=== PATIENT | male | born 1965 | race Caucasian/White ===

== ENCOUNTER 2017-05-12 09:41 | Outpatient (CLI) ==
--- NOTE | 2017-05-12 10:43 | CT ---
EXAM: CT lumbar spine without contrast HISTORY: Back pain COMPARISON: None TECHNIQUE: CT lumbar spine performed without intravenous contrast. Coronal and sagittal reformatte d images obtained. FINDINGS: For the purposes of this examination, there will be considered five lumbar vertebral bodi es with transitional anatomy of L1 and partial lumbarization of S1. Vertebral bodies normal in heig ht. No fracture. No subluxation. Mild multilevel intervertebral disc space narrowing. Sacroiliac joints intact. Colonic diverticulosis. Aorta normal in caliber. Small hiatal hernia, incompletel y imaged. Visualized liver diffusely decreased in attenuation. No paravertebral soft tissue abnorm ality. T12-L1: No central canal or neural foraminal narrowing. L1-L2: No central canal or neural foraminal narrowing. L2-L3: No central canal or neural foraminal narrowing. L3-L4: No central canal or neural foraminal narrowing. L4-L5: Posterior disc osteophyte complex and facet arthrosis causing mild bilateral neural foramina l narrowing. L5-S1: Posterior disc osteophyte complex and facet arthrosis causing moderate bilateral neural fora yariel narrowing. IMPRESSION: 1. No fracture or subluxation. 2. Chronic discogenic degenerative disease and facet arthrosis. Please see segmental analysis. Ple ase note vertebral body numbering. 3. Incidental findings include hepatic steatosis, colonic diverticulosis, small incompletely imaged hiatal hernia
== END 2017-05-12 09:42 | disposition home or self-care (01) ==
LOC: RAD 09:41
PROVIDERS: ATTEND Internal Medicine
DX: M54.9 Dorsalgia, unspecified (principal)

== ENCOUNTER 2017-05-13 08:25 | Outpatient (CLI) ==
--- NOTE | 2017-05-13 09:07 | US ---
Exam: Diaz-scale and color Doppler ultrasonographic evaluation of the right upper quadrant. Reason for exam: Pain. Comparison: None available. FINDINGS: The liver appears diffusely hyperechoic in echo texture with normal antegrade portal venous flow, an d no obvious intrahepatic ductal dilatation. There is a 0.61 x 0.76 x 0.61 cystic lesion in the lef t hepatic lobe without interval vascularity. The gallbladder wall measures 0.23 cm in thickness without intraluminal sludge, stone or polyp. The common bile duct measures 0.44 cm without intraluminal stone or polyp. The pancreas was not well seen secondary to overlying bowel gas. The right kidney measures 12.29 x 4.59 x 5.19 cm without obvious hydronephrosis or nephrolithiasis. Impression: 1. No ultrasonographic evidence of cholecystitis. 2. There is likely a sub centimeter hepatic cyst. 3. Evaluation was limited by overlying bowel gas and patient's body habitus.
== END 2017-05-13 08:26 | disposition home or self-care (01) ==
LOC: RAD 08:25
PROVIDERS: ATTEND Internal Medicine
DX: R10.9 Unspecified abdominal pain (principal)

== ENCOUNTER 2017-05-15 11:32 | Outpatient (CLI) ==
--- NOTE | 2017-05-15 12:20 | DI ---
Exam: Two x-rays of the chest. Comparison: None available. Reason for exam: Pain. FINDINGS: No pneumothorax, pleural effusion, or focal consolidation. Degenerative changes are seen in the thoracic spine. There is elevation of the right hemidiaphragm. Impression: No acute cardiopulmonary process.
--- NOTE | 2017-05-15 12:21 | DI ---
Exam: Seven x-rays of the cervical spine. Comparison: None available. Reason for exam: Pain. FINDINGS: No acute fracture or listhesis. There is multilevel degenerative disease with interverte bral body disc space height narrowing and osteophyte formation most notably at C5-6 and C6-7. The C 7-T1 interspace is not well evaluated secondary to summation artifact from the patient's shoulders. The dens is intact on the Wu view. The prevertebral soft tissues are within normal limits of s ize. Impression: 1. No acute fracture or listhesis in the visualized portions of the cervical spine. 2. Multilevel degenerative disease with intervertebral body disc space height loss and osteophyte f ormation
== END 2017-05-15 11:33 | disposition home or self-care (01) ==
LOC: RAD 11:32
PROVIDERS: ATTEND Internal Medicine
DX: M54.9 Dorsalgia, unspecified (principal); M54.2 Cervicalgia

== ENCOUNTER 2017-05-19 17:25 | Outpatient (CLI) | END 2017-05-19 17:26 | disposition home or self-care (01) | LOC: CAR 17:25 | PROVIDERS: ATTEND Internal Medicine | DX: I10 Essential (primary) hypertension (principal) | CPT/HCPCS: 93005; 93010 ==

== ENCOUNTER 2017-05-20 19:28 | Outpatient (CLI) ==
[2017-05-20 20:12] LABS: BASOPHILS % (AUTO) 0.5 % (0.0-3.0); EOSINOPHILS # (AUTO) 0.2 K/ul (0.0-0.7); EOSINOPHILS % (AUTO) 2.6 % (0.0-7.0); HEMATOCRIT 38.5 % (42.0-52.0); HEMOGLOBIN 13.3 g/dl (14.0-18.0); IMMATURE GRANULOCYTE % (AUTO) 0.5 % (0.0-5.0); LYMPHOCYTES # (AUTO) 1.5 K/uL (0.60-3.4); LYMPHOCYTES % (AUTO) 20.1 (10.0-50.0); MEAN CORPUSCULAR HEMOGLOBIN 27.7 pg (27.0-31.0); MEAN CORPUSCULAR HGB CONC 34.5 (31.8-35.4); MEAN CORPUSCULAR VOLUME 80.2 fl (80.0-94.0); MONOCYTES # (AUTO) 0.8 K/uL (0.4-2.0); MONOCYTES % (AUTO) 10.4 (0-10); NEUTROPHILS % (AUTO) 65.9; PLATELET COUNT 220 10^3/uL (140-440); WHITE BLOOD COUNT 7.61 K/ul (4.2-10.2)
[2017-05-20 20:13] LABS: ADD URINE MICROSCOPIC YES; BILIRUBIN,URINE Negative (NEGATIVE); KETONES,URINE Trace (NEGATIVE); LEUKOCYTE ESTERASE ,URINE Negative (NEGATIVE); NITRITE,URINE Negative (NEGATIVE); PH,URINE 5.5 (5-9); PROTEIN,URINE Negative (NEGATIVE); URINE, BLOOD Negative (NEGATIVE)
[2017-05-20 20:42] LABS: ERYTHROCYTE SEDIMENTATION RATE 30 mm/hr (0-15); ESR INTERNAL QC INTERNAL QC VALID
[2017-05-20 20:51] LABS: ALBUMIN 3.2 g/dL (3.4-5.0); ALBUMIN/GLOBULIN RATIO 0.8; ANION GAP 10.8; BILIRUBIN,TOTAL 0.36 mg/dL (0.00-1.20); BUN/CREATININE RATIO 19.31; CALCIUM 9.2 mg/dL (8.2-10.2); CHOL/HDL RATIO 3.5 (4.5-6.4); CREATININE 0.88 mg/dL (0.60-1.10); POTASSIUM 3.8 mmol/L (3.5-5.1); TOTAL PROTEIN 7.2 g/dL (6.4-8.2)
== END 2017-05-20 19:29 | disposition home or self-care (01) ==
LOC: LAB 19:28
PROVIDERS: ATTEND Internal Medicine
DX: I10 Essential (primary) hypertension (principal); E66.9 Obesity, unspecified; Z82.49 Family history of ischemic heart disease and other diseases of the circulatory system
CPT/HCPCS: 36415; 80053; 80061; 81001; 83036; 84443; 85025; 85651; 86430

== ENCOUNTER 2017-05-25 08:54 | Outpatient (CLI) ==
--- NOTE | 2017-05-25 13:06 | NM ---
EXAM: Hepatobiliary scan HISTORY: Right upper quadrant pain. COMPARISON: None of this type. PROCEDURE: The patient was injected with 5 mCi of 99mTc mebrofenin intravenously. Images of the abdo men were obtained immediately and at 1 min intervals for . The patient was then given 8 ounces of MARIELA OST after which images of the gallbladder were obtained to assess gallbladder contraction. FINDINGS: Sequential images demonstrate normal uptake of tracer into the liver. Activity is seen in the intrahepatic biliary ducts at about 10 minutes. The activity appears in the gallbladder at about 45 minutes. Subsequent images demonstrate increasing activity in the gallbladder. Activity first a ppears in the small bowel at 20 minutes. The gallbladder ejection fraction is 24% . IMPRESSION: 1.Normal hepatobiliary scan. 2.The gallbladder ejection fraction is 24% (low).
== END 2017-05-25 08:55 | disposition home or self-care (01) ==
LOC: RAD 08:54
PROVIDERS: ATTEND Internal Medicine
DX: R10.11 Right upper quadrant pain (principal)

== ENCOUNTER 2017-05-27 09:26 | Outpatient (CLI) ==
--- NOTE | 2017-05-27 21:13 | MRI ---
EXAM: Lumbar spine MRI without contrast. HISTORY: Low back pain. History of herniated disc. COMPARISON: Lumbar spine CT scan 05/12/2017 and chest radiograph 05/15/2017. TECHNIQUE: Multiplanar, multisequence MR images were acquired of the lumbar spine without contrast. FINDINGS: Transitional anatomy is present at the thoracolumbar junction. For the purposes of this d ictation, the last normal rib-bearing vertebra is numbered T12 and at L1, there are considered unusua l articulating transverse processes or hypoplastic ribs bilaterally. There is minor mid lumbar levosc oliosis. The lumbar vertebra are generally normal in height and intrinsic bone marrow signal. There is minor lumbar ventral spondylosis. At L5-S1, there is mild to moderate disc space narrowing, disc desiccation, mild endplate irregularity and reactive fatty marrow changes along the lateral endplate s bilaterally. There is mild endplate irregularity in the lower thoracic and upper lumbar spine from T10-11 to L1-2. Conus medullaris ends at L1-2 and has normal configuration and signal intensity. C anal diameter is developmentally narrow due to congenitally short pedicles. The partially visualized kidneys are unremarkable. There are no paravertebral masses. L1-2: The intervertebral disc is normal. L2-3: There is a minimal physiologic disc bulge that is asymmetric to the left which minimally narro ws the inferior left neural foramen. There is no central canal stenosis. L3-4: The intervertebral disc is normal. L4-5: The intervertebral disc is normal. There is mild bilateral facet arthropathy and ligamentum f lavum hypertrophy without foraminal stenosis or central canal stenosis. L5-S1: There is a minor diffuse disc bulge that is greatest posteriorly with small posterior endplat e osteophytes and a superimposed broad-based central disc extrusion that is asymmetric to the left wi th inferior migration. This minimally effaces the left anterior subarachnoid space. Mild bilateral facet and ligamentum flavum hypertrophy is present. There is mild to moderate right and moderate lef t neural foraminal stenosis. There is no central canal stenosis. IMPRESSION: 1. Transitional lumbar spinal anatomy. L1 has unusual articulating transverse processes or hypoplast ic ribs bilaterally. 2. Small broad-based central disc extrusion L5-S1 that is asymmetric to the left with inferior migra tion. 3. Mild to moderate right and moderate left L5-S1 neural foraminal stenosis.
== END 2017-05-27 09:27 | disposition home or self-care (01) ==
LOC: RAD 09:26
PROVIDERS: ATTEND Internal Medicine
DX: M54.5 Low back pain (principal)

== ENCOUNTER 2018-03-02 11:48 | Outpatient (CLI) ==
--- NOTE | 2018-03-02 14:01 | DI ---
EXAM: Left knee four views HISTORY: Fall COMPARISON: None FINDINGS: No fracture or dislocation. Mild tricompartmental osteoarthritis. No definite joint effu ernestina. Mild patellar tendon enthesopathy. IMPERSSION: 1. No fracture or dislocation. 2. Mild tricompartmental osteoarthritis
== END 2018-03-02 11:49 | disposition home or self-care (01) ==
LOC: RAD 11:48 → CAR 11:49
PROVIDERS: ATTEND Internal Medicine
DX: M25.562 Pain in left knee (principal); W19.XXXA Unspecified fall, initial encounter; I10 Essential (primary) hypertension; E66.9 Obesity, unspecified
CPT/HCPCS: 36415; 80053; 80061; 83036; 84443; 85025; 93005; 93010

== ENCOUNTER 2018-10-07 14:29 | Emergency (ER) ==
[2018-10-07 14:31] VITALS: BP 200/116; TEMP 98.3; BMI 50.9
--- NOTE | 2018-10-07 17:19 | ED.PDOC ---
General ED Provider: Dr. GWENDOLYN TORRES Chief Complaint: Respiratory Complaint Stated Complaint: Sore throat, cough and congeston , sinus drainage Time Seen by Physician: 17:20 Mode of Arrival: Walk-In Information Source: Patient Exam Limitations: No limitations Primary Care Provider: MARGY BURKS Nursing and Triage Documentation Reviewed and Agree: Yes Does patient meet sepsis criteria?: No If yes, has appropriate treatment been initiated?: No System Inflammatory Response Syndrome: Not Applicable Sepsis Protocol: For patient's 13 years and over: Temp is 96.8 and below OR 101 and greater Pulse >90 BPM Resp >20/minute Acutely Altered Mental Status Are patient's symptoms suggestive of a new infection, such as: -Pneumonia -Skin, Soft Tissue -Endocarditis -UTI -Bone, Joint Infection -Implantable Device -Acute Abdominal Infection -Wound Infection -Meningitis -Blood Stream Catheter Infection -Unknown Respiratory Complaint Exam - Respiratory Complaint/Exam Symptoms Are: Still present Timing: Constant Initial Severity: Moderate Current Severity: Mild Location: Throat, Chest Character: Reports: Productive cough Aggravating: Reports: Deep breaths Alleviating: Reports: None Associated Signs and Symptoms: Reports: Chills, URI, Sore throat, Weight loss, Decreased oral intake Related Surgical History: Reports: None Pulmonary Embolism Risk Factors: None Cardiac Risk Factors: Reports: None Pseudomonas Risk Factors: Reports: None Tuberculosis Risk Factors: Reports: None Status Asthmaticus Risk Factors: Reports: None Home Oxygen Use: No Recent Stress Test: No Recent Echo/LV Function: No Current Antibiotic Use: No Current Asthma Medication Use: No Respiratory Distress: None Inadequate Respiratory Effort: No Dysphagia Present: No Stridor Present: No JVD Present: No Accessory Muscle Use: No Retractions: Not Present Diminished Breath Sounds: No Sinus Tenderness: Maxillary Grunting Respirations: No Kussmaul Respirations: No Differential Diagnoses: URI, Influenza Review of Systems - Review Of Systems Constitutional: Reports: Chills, Fever Eyes: Reports: No symptoms Ears, Nose, Mouth, Throat: Reports: No symptoms Respiratory: Reports: Cough Cardiac: Reports: No symptoms GI: Reports: No symptoms : Reports: No symptoms Musculoskeletal: Reports: No symptoms Skin: Reports: No symptoms Neurological: Reports: No symptoms Endocrine: Reports: No symptoms Hematologic/Lymphatic: Reports: No symptoms All Other Systems: Reviewed and Negative Past Medical History - Past Medical History Previously Healthy: Yes Endocrine: Reports: None Cardiovascular: Reports: Hypertension Respiratory: Reports: None Hematological: Reports: None Gastrointestinal: Reports: None Genitourinary: Reports: None Neuro/Psych: Reports: None Musculoskeletal: Reports: None Cancer: Reports: None - Surgical History General Surgical History: Reports: None - Family History Family History: Reports: None - Social History Smoking Status: Never smoker Hx Substance Use: No Alcohol Screening: None - Immunizations Tetanus Shot up to Date: No Physical Exam - Physical Exam Appearance: Ill-appearing, Obese Ill-appearing: Mild Pain Distress: Mild Eyes: RODRIGUEZ, EOMI, Conjunctiva clear ENT: Ears normal, Nose normal, Erythema Neck: Supple Respiratory: Airway patent, Breath sounds clear, Breath sounds equal, Respirations nonlabored, Wheezes Cardiovascular: RRR, Pulses normal, No rub, No murmur GI/: Soft, Nontender, No masses, Bowel sounds normal, No Organomegaly Musculoskeletal: Normal strength, ROM intact, No edema, No calf tenderness Skin: Warm, Dry, Normal color Neurological: Sensation intact, Motor intact, Reflexes intact, Cranial nerves intact, Alert, Oriented Psychiatric: Affect appropriate, Mood appropriate Critical Care Note - Critical Care Note Total Time (mins): 60 Course - Course Hematology/Chemistry: 10/07/18 17:38 10/07/18 17:38 Orders, Labs, Meds: Lab Review 10/07/18 10/07/18 10/07/18 17:38 17:38 17:38 WBC 3.84 L RBC 5.28 Hgb 14.0 Hct 42.9 MCV 81.3 MCH 26.5 L MCHC 32.6 RDW Coeff of Layton 13.4 Plt Count 183 Immature Gran % (Auto) 0.8 Neut % (Auto) 48.2 Lymph % (Auto) 24.7 [place] % (Auto) 22.9 H Eos % (Auto) 2.9 Baso % (Auto) 0.5 Immature Gran # (Auto) 0.0 Neut # (Auto) 1.9 L Lymph # (Auto) 1.0 [place] # (Auto) 0.9 Eos # (Auto) 0.1 Baso # (Auto) 0.0 Sodium 139.7 Potassium 3.92 Chloride 99.0 Carbon Dioxide 31.4 H Anion Gap 13.22 BUN 14.3 Creatinine 0.86 Estimated GFR (MDRD) 93.00 BUN/Creatinine Ratio 16.62 Glucose 81.1 Calcium 8.71 Total Bilirubin 0.40 AST 25.8 ALT 25.2 Alkaline Phosphatase 66.1 Total Protein 7.64 Albumin 4.17 Globulin 3.47 Albumin/Globulin Ratio 1.20 Influ A Molecular Assay Positive by naat H Influ B Molecular Assay Negative by naat RSV Antigen 10/07/18 17:38 WBC RBC Hgb Hct MCV MCH MCHC RDW Coeff of [place] Plt Count Immature Gran % (Auto) Neut % (Auto) Lymph % (Auto) [place] % (Auto) Eos % (Auto) Baso % (Auto) Immature Gran # (Auto) Neut # (Auto) Lymph # (Auto) [place] # (Auto) Eos # (Auto) Baso # (Auto) Sodium Potassium Chloride Carbon Dioxide Anion Gap BUN Creatinine Estimated GFR (MDRD) BUN/Creatinine Ratio Glucose Calcium Total Bilirubin AST ALT Alkaline Phosphatase Total Protein Albumin Globulin Albumin/Globulin Ratio Influ A Molecular Assay Influ B Molecular Assay RSV Antigen Negative by naat Orders Category Date Time Status CBC W/ AUTO DIFF Stat LAB 10/07/18 17:38 Completed CMP [COMPREHENSIVE METABOLIC PANEL] Stat LAB 10/07/18 17:38 Completed FLU A & B MOLECULAR [FLU A/B MOLECULAR] Stat LAB 10/07/18 17:38 Completed RAPID STREP SCREEN [MOLECULAR GROUP A STREP] Stat LAB 10/07/18 17:38 Completed RSV Stat LAB 10/07/18 17:38 Completed CHEST, 2 VIEWS PA & LAT Stat RADS 10/07/18 17:18 Completed Vital Signs: Temp Pulse Resp BP Pulse Ox 10/07/18 14:29 98.3 F 74 18 200/116 H 94 L Departure - Departure Time of Disposition: 19:00 Disposition: HOME SELF-CARE Discharge Problem: Influenza A Instructions: Influenza (ED) Condition: Fair Pt referred to PMD for follow-up: Yes (1 wk) IPMP verified?: No Additional Instructions: Stay well hydrated Tylenol or advil for pain /Temp elevation Avoid tobacco exposure Prescriptions: Oseltamivir Phosphate [Tamiflu] 75 mg PO Q12HR #10 capsule Allergies/Adverse Reactions: Allergies acetaminophen [From Percocet] Adverse Reaction (Verified 10/07/18 14:31) oxycodone [From Percocet] Adverse Reaction (Verified 10/07/18 14:31) Home Medications: Ambulatory Orders Lisinopril/Hydrochlorothiazide [Lisinopril-Hctz 10-12.5 mg Tab] 1 tab PO DAILY 10/07/18 Naproxen 500 mg PO PRN PRN 10/07/18 Oseltamivir Phosphate [Tamiflu] 75 mg PO Q12HR #10 capsule 10/07/18 Disposition Discussed With: Patient
--- NOTE | 2018-10-07 17:46 | DI ---
EXAM: Chest two views HISTORY: Cough FINDINGS: Normal cardiac and mediastinal contours. Normal pulmonary vasculature. Lungs are clear. Atherosclerotic calcification of the aorta. No significant abnormality of the bony thorax. IMPRESSION: No acute cardiopulmonary disease
== END 2018-10-07 19:25 | disposition home or self-care (01) ==
LOC: ED 14:29
DX: J11.1 Influenza due to unidentified influenza virus with other respiratory manifestations (principal)
CPT/HCPCS: 36415; 80053; 85025; 87502; 87651; 87801; 99283

== ENCOUNTER 2019-03-03 08:50 | Outpatient (CLI) ==
--- NOTE | 2019-03-03 09:51 | DI ---
EXAM: Left knee four views HISTORY: Knee pain COMPARISON: 03/02/2018 FINDINGS: No fracture or dislocation. Mild tricompartmental osteoarthritis. No joint effusion. Mi ld patellar tendon enthesopathy IMPERSSION: Mild tricompartmental osteoarthritis
--- NOTE | 2019-03-03 11:11 | US ---
EXAM: Ultrasound abdomen complete HISTORY: Abdominal pain COMPARISON: 05/13/2017 TECHNIQUE: Complete ultrasound abdomen was performed FINDINGS: Pancreas poorly visualized secondary bowel gas shadowing. Liver diffusely increased in ec hogenicity. Liver normal in size. Portions of the liver obscured secondary to shadowing artifact. Cyst in the right lobe of liver measuring 1.0 cm. Main portal vein patent with normal direction of f low. Patient status post cholecystectomy. Mild prominence of the common bile duct measuring 0.8 cm. Right kidney measures 12.8 cm in length. Left kidney measures 13.4 cm in length. Portions of the kidneys obscured secondary to shadowing artifact. No hydronephrosis. Spleen normal in size and ech ogenicity measuring 12.3 cm in length. Portions of the spleen obscured secondary to shadowing artifa ct. Aorta and inferior vena cava obscured secondary to shadowing artifact. IMPRESSION: 1. Limited examination as described, with multiple structures obscured or partially obscured. 2. Hepatic steatosis. 3. Status post cholecystectomy. Mild prominence common bile duct measuring 0.8 cm, likely postsurgi ester. Findings can be correlate with liver function tests. 4. Small liver cyst.
== END 2019-03-03 08:51 | disposition home or self-care (01) ==
LOC: RAD 08:50
PROVIDERS: ATTEND Internal Medicine
DX: M25.562 Pain in left knee (principal); R10.11 Right upper quadrant pain; I10 Essential (primary) hypertension; K21.9 Gastro-esophageal reflux disease without esophagitis; M79.7 Fibromyalgia; Z12.5 Encounter for screening for malignant neoplasm of prostate
CPT/HCPCS: 36415; 80053; 80061; 82150; 83036; 83690; 84439; 84443; 85025

== ENCOUNTER 2019-04-29 10:38 | Outpatient (CLI) ==
--- NOTE | 2019-04-29 17:50 | US ---
EXAM: Renal ultrasound HISTORY: Renal stone, right upper quadrant pain COMPARISON: None TECHNIQUE: Renal ultrasound was performed FINDINGS: Examination is limited. Portions of the bilateral kidneys are obscured. Right kidney sweta sures 5.1 x 4.5 x 14.7 cm. Left kidney measures 6.1 x 5.4 x 14.5 cm. Renal cortical echogenicity is normal. No hydronephrosis or renal calculus large enough to cause acoustic shadowing. Bladder only mildly distended and poorly evaluated. IMPRESSION: 1. No hydronephrosis. 2. Limited examination.
--- NOTE | 2019-04-29 17:50 | DI ---
EXAM: Abdomen one view HISTORY: Pain, history of renal stones COMPARISON: None TECHNIQUE: Single view abdomen was performed. FINDINGS: Bowel gas pattern is nonobstructive. There are no abnormal calcifications. Cholecystectomy clips. There are no acute abnormalities of the bones. IMPRESSION: No acute abnormality identified.
== END 2019-04-29 10:39 | disposition home or self-care (01) ==
LOC: RAD 10:38
PROVIDERS: ATTEND Internal Medicine
DX: R10.11 Right upper quadrant pain (principal); Z87.442 Personal history of urinary calculi